=== PATIENT | female | born 1965 | race Caucasian/White ===

== ENCOUNTER 2023-11-17 00:32 | Emergency (ER) | payer BC, OTHER ==
[2023-11-17] MEDS ORDERED: PRED20TA PO (03:24)
[2023-11-17] MEDS: predniSONE 20 MG TAB PO ONE (03:34)
[2023-11-17] MEDS: OXYCODONE/APAP 5MG/325MG(HOME DOSE PACK) PO ONE (03:35)
[2023-11-17 03:44] VITALS: TEMP 96.5; O2SAT 97
[2023-11-17 03:48] VITALS: BP 198/96
== END 2023-11-17 03:56 | disposition home or self-care (01) ==
LOC: M ED 00:32
DX: S46.811A Strain of other muscles, fascia and tendons at shoulder and upper arm level, right arm, initial encounter (principal); M75.31 Calcific tendinitis of right shoulder; W19.XXXA Unspecified fall, initial encounter; F32.A Depression, unspecified; J45.909 Unspecified asthma, uncomplicated; F10.10 Alcohol abuse, uncomplicated; Z88.6 Allergy status to analgesic agent; Y92.009 Unspecified place in unspecified non-institutional (private) residence as the place of occurrence of the external cause; Y93.89 Activity, other specified; Y99.9 Unspecified external cause status; Z79.52 Long term (current) use of systemic steroids
CPT/HCPCS: 73030; 99284; J7512

== ENCOUNTER → 2023-12-07 | Outpatient (CLI) | payer BC ==
[~2023-12-07] MED LIST: PRED20TA PO
== END ==
LOC: M RAD 14:03
PROVIDERS: ATTEND Physician Assistant
DX: M75.31 Calcific tendinitis of right shoulder (principal)